=== PATIENT | male | born 1995 | race Caucasian/White ===

== ENCOUNTER 2017-07-27 09:50 | Emergency (ER) | payer SELFPAY ==
[2017-07-27 09:58] VITALS: RESP 18
[2017-07-27] MEDS ORDERED: Bacitracin 500 Units/gm Oint Foilpak UD TOP ONE (10:56)
[2017-07-27] MEDS ORDERED: Bacitracin 500 Units/gm Oint Foilpak UD ONE (10:59)
--- NOTE | 2017-07-27 11:01 | C.PDOC ---
Time Seen by Provider: 07/27/17 10:28 Chief Complaint (Nursing): Suture/Staple Removal History Per: Patient Onset/Duration Of Symptoms: Days Ago, Laceration Current Symptoms Are (Timing): Better Location Of Injury: Left: Leg Quality Of Symptoms: denies: Painful, Swollen, Draining Severity: Mild Additional History Per: Prior Records Past Medical History Reviewed: Historical Data, Nursing Documentation, Vital Signs Vital Signs: Last Vital Signs Temp 98.5 F 07/27/17 09:54 Pulse 77 07/27/17 09:54 Resp 18 07/27/17 09:54 BP 126/75 07/27/17 09:54 Pulse Ox 100 07/27/17 09:54 - Medical History PMH: No Chronic Diseases Family History: States: Unknown Family Hx - Social History Hx Alcohol Use: Yes Hx Substance Use: Yes - Immunization History Hx Tetanus Toxoid Vaccination: Yes Hx Influenza Vaccination: No Hx Pneumococcal Vaccination: No Review Of Systems Constitutional: Negative for: Fever Musculoskeletal: Negative for: Leg Pain Skin: Negative for: Rash Neurological: Negative for: Weakness, Numbness Physical Exam - Physical Exam Appears: Non-toxic, No Acute Distress Skin: Normal Color, Warm, Dry Head: Atraumatic, Normacephalic Eye(s): bilateral: PERRL, EOMI Neck: Normal ROM, Supple Extremity: Normal ROM, No Calf Tenderness, Other (Healed laceration on left leg closed with suni) Neurological/Psych: Oriented x3, Normal Motor, Normal Sensation ED Course And Treatment O2 Sat by Pulse Oximetry: 100 Pulse Ox Interpretation: Normal Progress Note: Suni were removed by me without any difficulty. Reassessment Condition: Improved Disposition Counseled Patient/Family Regarding: Diagnosis, Need For Followup - Disposition Referrals: [facility] [Outside] Disposition: HOME/ ROUTINE Disposition Time: 11:00 Condition: STABLE Additional Instructions: Follow up in the clinic. Return to the ER if you develop redness, swelling, pus drainage, worsening of symptoms or if you have any other concerns. Instructions: Stitches Removal (ED) - Clinical Impression Clinical Impression: Removal of suni
[2017-07-27 11:02] VITALS: BP 122/74; PULSE 67; TEMP 97.7; O2SAT 98
== END 2017-07-27 11:08 | disposition home or self-care (01) ==
LOC: C.ER 09:50
DX: Z48.02 Encounter for removal of sutures (principal)